=== PATIENT | female | born 1945 | race Caucasian/White ===

== ENCOUNTER → 2023-02-22 15:36 | Outpatient (REF) | payer OTHER, SELFPAY | LOC: DHCBC MAIN 15:36 | PROVIDERS: ATTENDING PHYSICIAN Internal Medicine; FAMILY PHYSICIAN Family Medicine | DX: I31.39 Other pericardial effusion (noninflammatory) (principal) | CPT/HCPCS: 93308 ==

== ENCOUNTER → 2023-04-28 14:29 | Outpatient (REF) | payer OTHER, SELFPAY | LOC: RAD 14:29 | PROVIDERS: ATTENDING PHYSICIAN Thoracic Surgery (Cardiothoracic Vascular Surgery); FAMILY PHYSICIAN Family Medicine | DX: J90 Pleural effusion, not elsewhere classified (principal) | CPT/HCPCS: 71046 ==

== ENCOUNTER 2023-06-25 08:16 | Outpatient (RCR) | payer OTHER, SELFPAY ==
[2023-06-01 11:33] LABS: Glucose - Point of Care 96 mg/dl (70-99)
[2023-06-01 12:51] LABS: Glucose - Point of Care 87 mg/dl (70-99)
[2023-06-04 08:20] LABS: Glucose - Point of Care 146 mg/dl (70-99)
[2023-06-04 09:12] LABS: Glucose - Point of Care 86 mg/dl (70-99)
[2023-06-07 08:15] LABS: Glucose - Point of Care 105 mg/dl (70-99)
[2023-06-07 08:59] LABS: Glucose - Point of Care 97 mg/dl (70-99)
[2023-06-11 08:10] LABS: Glucose - Point of Care 143 mg/dl (70-99)
[2023-06-11 08:59] LABS: Glucose - Point of Care 99 mg/dl (70-99)
[2023-06-16 08:13] LABS: Glucose - Point of Care 111 mg/dl (70-99)
[2023-06-18 08:08] LABS: Glucose - Point of Care 103 mg/dl (70-99)
[2023-06-18 08:56] LABS: Glucose - Point of Care 102 mg/dl (70-99)
[2023-06-21 08:12] LABS: Glucose - Point of Care 119 mg/dl (70-99)
[2023-06-21 08:59] LABS: Glucose - Point of Care 88 mg/dl (70-99)
== END 2023-06-25 23:59 | disposition home or self-care (01) ==
LOC: CRHB 08:16
PROVIDERS: ATTENDING PHYSICIAN Internal Medicine
DX: Z95.1 Presence of aortocoronary bypass graft (principal)
CPT/HCPCS: 82962; G0422; G0423

== ENCOUNTER → 2023-07-16 15:07 | Outpatient (REF) | payer OTHER, SELFPAY | LOC: DHCBC MAIN 15:07 | PROVIDERS: ATTENDING PHYSICIAN Nurse Practitioner; FAMILY PHYSICIAN Family Medicine | DX: I48.0 Paroxysmal atrial fibrillation (principal); I25.10 Atherosclerotic heart disease of native coronary artery without angina pectoris; Z95.2 Presence of prosthetic heart valve | CPT/HCPCS: 93306 ==

== ENCOUNTER 2023-07-26 08:24 | Outpatient (RCR) | payer OTHER, SELFPAY | END 2023-07-26 23:59 | disposition home or self-care (01) | LOC: CRHB 08:24 | PROVIDERS: ATTENDING PHYSICIAN Internal Medicine; FAMILY PHYSICIAN Family Medicine | DX: Z95.4 Presence of other heart-valve replacement (principal); Z95.1 Presence of aortocoronary bypass graft | CPT/HCPCS: G0422; G0423 ==

== ENCOUNTER → 2023-08-05 09:18 | Outpatient (REF) | payer OTHER, SELFPAY | LOC: HWRAD 09:18 | PROVIDERS: ATTENDING PHYSICIAN Internal Medicine Critical Care Medicine; FAMILY PHYSICIAN Family Medicine | DX: F17.210 Nicotine dependence, cigarettes, uncomplicated (principal) | CPT/HCPCS: 71271 ==

== ENCOUNTER 2023-08-18 10:06 | Outpatient (RCR) | payer OTHER, SELFPAY | END 2023-08-18 23:59 | disposition home or self-care (01) | LOC: CRHB 10:06 | PROVIDERS: ATTENDING PHYSICIAN Internal Medicine; FAMILY PHYSICIAN Family Medicine | DX: Z95.2 Presence of prosthetic heart valve (principal); Z95.1 Presence of aortocoronary bypass graft | CPT/HCPCS: G0422; G0423 ==

== ENCOUNTER 2023-08-19 05:24 | Inpatient (IN) | payer OTHER, SELFPAY ==
[2023-08-19] VITALS (12 sets, daily range): BP systolic 122–185; BP diastolic 72–116; BMI 20.9; BMI 19.2
--- NOTE | 2023-08-19 01:17 | ED.GENMED ---
History of Present Illness
<CHELI Cedeno - Last Filed: 08/19/23 04:09>
General
Chief Complaint: Nose Bleed
Source: patient
Exam Limitations: none
Time Seen by Provider: 08/19/23 00:41
History of Present Illness
History of Present Illness:
This is a 78 YO F with a PMH of valve replacement, COPD, and allergies that presents here today for a constant nose bleed x 2 hours. Pt reports this started at 11 PM and woke her from her sleep. She is currently on aspirin and Eliquis for A FIB. She
reports her left ear was throbbing last week, but states this is no longer bothering her. She states her car is full of pollen, which has caused some nasal congestion. Denies recent illness. Denies N,V, D, SOB, and chest pain. Denies lightheadedness
and dizziness. Denies dysphagia. Recently started Trelegy for COPD. She states this has never happened before.
Past History
<CHELI Cedeno - Last Filed: 08/19/23 04:09>
Past History
ED Past Medical History: COPD, HTN, Hypercholesterolemia, NIDDM and Valvular disease (Aortic stenosis)
ED Past Surgical History: Other (NA)
Social History
Tobacco: Smoker
Alcohol: Daily
Personal: Single
Living: with family
Employment: Retired
Review of Systems
<CHELI Cedeno - Last Filed: 08/19/23 04:09>
Review of Systems
Constitutional: Reports no symptoms
EENT: Reports other (Nose bleed x 2.5 hours ago)
Respiratory: Reports no symptoms
Cardiac: Reports no symptoms
ABD/GI: Reports no symptoms
: Reports no symptoms
Musculoskeletal: Reports no symptoms
Skin: Reports no symptoms
Neurological: Reports no symptoms
Phy Exam
<CHELI Cedeno - Last Filed: 08/19/23 04:09>
Physical Exam
Physical Exam:
Constant nose bleed since 11 p.m.
General Physical Exam
General Presentation: well appearing
General age: appears stated age
General Habitus: normal
General Mental: alert
ENT Exam
Additional ENT: Some blood in back of throat
Pulmonary Exam
Pulmonary Exam: lungs clear
Course
<CHELI Cedeno - Last Filed: 08/19/23 04:09>
Orders/Labs/Results
Orders:
Orders
08/19/23 04:06
Basic Metabolic Panel Urgent
Complete Blood Count/With Diff Urgent
Protime/PTT Urgent
Vital Signs
Initial and Last Documented VS:
Initial Vital Signs
Temp Pulse Resp BP Pulse Ox
97.5 F 61 18 169/94 95
08/19/23 00:13 08/19/23 00:13 08/19/23 00:13 08/19/23 00:13 08/19/23 00:13
Last Documented Vital Signs
Temp Pulse Resp BP Pulse Ox
97.5 F 60 18 140/72 97
08/19/23 00:13 08/19/23 04:04 08/19/23 00:13 08/19/23 04:04 08/19/23 04:04
<Amanda Martell DO - Last Filed: 08/19/23 04:13>
Orders/Labs/Results
Orders:
Orders
08/19/23 04:06
Basic Metabolic Panel Urgent
Complete Blood Count/With Diff Urgent
Protime/PTT Urgent
Vital Signs
Initial and Last Documented VS:
Initial Vital Signs
Temp Pulse Resp BP Pulse Ox
97.5 F 61 18 169/94 95
08/19/23 00:13 08/19/23 00:13 08/19/23 00:13 08/19/23 00:13 08/19/23 00:13
Last Documented Vital Signs
Temp Pulse Resp BP Pulse Ox
97.5 F 60 18 140/72 97
08/19/23 00:13 08/19/23 04:04 08/19/23 00:13 08/19/23 04:04 08/19/23 04:04
Procedures
<Amanda Martell DO - Last Filed: 08/19/23 04:13>
Nosebleed
Drug treatment: Lidocaine and Epinephrine
Treatment: local pressure applied, Silver nitrate cautery, Epistat nasal catheter and Merocel packing
Post treatment bleeding: still some oozing (silver nitrate to ant septum and anterior aspect of inferior turbinate.) and continue to observe
<CHELI Cedeno - Last Filed: 08/19/23 04:09>
MDM/Problems Addressed
Differential Diagnosis Includes:
Anterior nose bleed vs. posterior nose bleed
MDM/Problems Addressed:
Nose bleed x 2 hours
Chronic conditions affecting care: COPD
<CHELI Cedeno - Last Filed: 08/19/23 04:09>
*Critical Care Note
Total Time (30-74mins, 75-104mins- exclusive of procedures): Not Applicable
<Amanda Martell DO - Last Filed: 08/19/23 04:13>
*Pulse Oximetry
Patient hypoxic: no
ED Attending Note
<CHELI Cedeno - Last Filed: 08/19/23 04:09>
-
Portions of this chart may have been created with voice recognition software.� Occasional wrong word or��sound alike� substitutions may have occurred due to the inherent limitations of voice recognition software.
<Amanda Martell DO - Last Filed: 08/19/23 04:13>
ED Attending Note
Patient seen and examined by attending physician: Yes
I performed the substantive portion of visit, reviewed & personally made and approve the management plan that is documented in note by myself or MOHSEN.: Yes
I performed a history and physical exam of patient and discussed management with resident, I reviewed resident's note and agree with documented findings and plan of care.: Yes
ED Attending Note:
This is a 78-year-old woman with history of PAF, chronically maintained on Eliquis as well as low-dose aspirin. She has history of CAD, aortic stenosis status post CABG x 1, AVR March 2023.
She complains of spontaneous left nostril epistaxis that woke her from sleep around 11 PM. She has had issues with seasonal allergies recently with mild intermittent nasal congestion, rare sneezing but has not had a headache, no sore throat, no
fever nor sinus pain. No prior history of nosebleeds. She has been trying to hold pressure but continues with intermittent oozing of blood from the left nostril. She denies dizziness nor lightheadedness, no nausea nor vomiting.
GENERAL: 78-year-old woman appears somewhat younger than stated age, bright and alert, pleasant, appears in no acute distress. External nasal clip in place. No active epistaxis noted.
EYE: pupils equal and reactive. anicteric
NECK: Supple, nontender, no meningismus, no significant adenopathy.
ENT: posterior pharynx has scant blood streaking but no evidence of active bleeding posteriorly, oral mucosa is moist. TM clear b/l, there is scant blood within the left nostril with mild erythema of anterior septum as well as 1 pinpoint area of
erythema anterior aspect of the inferior turbinate. There is no evidence of active bleeding.
CARDIAC: Regular rate and rhythm. 2/6 holosystolic murmur.
LUNGS: Clear breath sounds bilaterally, no acute respiratory distress, no wheezes/rales/rhonchi
ABDOMEN: Soft, nondistended, without focal tenderness
NEUROLOGICAL: Alert and oriented x3, no focal neuro deficits. Gait is steady.
SKIN: Warm and dry, normal color, skin intact. No rash. No petechiae nor ecchymosis.
MUSCULOSKELETAL: No C/C/E. peripheral pulses are full and equal b/l. No palpable tenderness.
PSYCH: Normal and appropriate interaction.
Patient presents with acute left nostril epistaxis.
Chronically maintained on Eliquis, low-dose aspirin.
Hemodynamically stable.
No evidence of active epistaxis but she is noted to have area of erythema anterior septum as well as anterior aspect of the inferior turbinate both of which have been cauterized.
After initial cautery patient has had return of very mild bleeding from left nostril which appears to be very inferior aspect of the inferior turbinate which has been recauterized.
Will continue to observe.
08/19/2023 0223 AM
Patient has again had mild slow bleeding from left nostril. Reexamination reveals initial cautery sites remain dry. Bleeding appears to be more posteriorly but no definitive site identified thus 8 cm Merocel packing placed in left nostril.
Patient tolerated procedure well. Epistaxis appears to have subsided but will continue to observe.
08/19/2023 0335 AM
Patient has had no recurrent bleeding. Has ambulated to and from the bathroom with steady, unaided gait.
She remains hemodynamically stable.
Will discharge home with Merocel packing in place.
Will place on a short course of doxycycline for sinusitis prevention.
Recommend she hold her Eliquis over the next 2 days, can resume thereafter.
Will refer to ENT for follow-up, further evaluation and packing removal.
08/19/2023 0407 AM
While getting ready to discharge patient, she had recurrent bleeding from left nostril, Merocel packing is now soaked with some oozing of blood from her left nostril.
Merosel packing removed and replaced with Nasostat balloon packing.
Due to recurrent bleeding requiring multiple various interventions will plan to admit to hospitalist service for continued close observation with plan to consult ENT.
Will hold Eliquis and aspirin.
Discharge Plan
Departure
Patient Disposition: Admit
Date of Disposition: 08/19/23
Time of Disposition: 04:12
Admit to: Med/Surg
Admit to doctor: Sivakumar
Presentation/result/management discussed w/ accepting MD/DO: Hospitalist
Patient with high blood pressure during this ER visit?: No
Condition: Good
Discharge Problem:
acute epistaxis, recurrent epistaxis left nostril
Instructions: Nosebleeds (DC)
Prescriptions:
New
doxycycline monohydrate 100 mg capsule
100 mg PO BID Qty: 10 1RF
No Action
metformin 500 mg Tablet
500 mg PO DAILY
atorvastatin 20 mg Tablet
20 mg PO DAILY
albuterol sulfate [ProAir HFA] 90 mcg/actuation Hfa Aerosol Inhaler
1 puff INHALATION PRN PRN (Reason: copd)
nicotine 7 mg/24 hr Patch 24 Hour
1 patch TRANSDERMAL Q24H PRN (Reason: quit smoking)
amiodarone [Pacerone] 100 mg tablet
100 mg PO DAILY
Eliquis 5 mg tablet
5 mg PO BID
aspirin [Children's Aspirin] 81 mg Tablet,Chewable
81 mg PO DAILY Qty: 0 0RF
metoprolol succinate 25 mg tablet extended release 24 hr
25 mg PO DAILY Qty: 30 2RF
furosemide 20 mg tablet
20 mg PO DAILY 7 Days Qty: 0 0RF
Trelegy Ellipta 100-62.5-25 mcg Blister With Device
1 inh INHALATION DAILY
Referrals:
Zeb Godfrey MD [Family Provider] -
Guru Abreu MD [Active] - Next open appointment
Activity Restrictions/Additional Instructions:
Hold your Eliquis over the next 2 days, and Wednesday, you can resume on Wednesday.
Try to avoid blowing, sniffing and aggressively wiping her nose.
You have Merocel packing in the left nostril which should remain in place for at least 3 days. You should follow-up with ENT specialist for further evaluation and packing removal.
Interventions
Interventions:
*Risk Screen - Suicide Last Done: 08/19/23 00:13
*General Assessment Last Done: 08/19/23 00:13
*Neglect/Abuse Screening Last Done: 08/19/23 00:13
ED- Fall Risk Assessment Last Done: 08/19/23 00:13
*ED COVID-19 Vaccine History Last Done: 08/19/23 00:13
ED-EENT Assessment Last Done: 08/19/23 00:57
Discharge Date and Time
Print Language: UGANDAN
[2023-08-19 04:35] LABS: % Basophils 1.1 % (0-2); % Eosinophils 3.2 % (0-6); % Immature Granulocytes 0.3 % (0-0.5); % Lymphocytes 46.9 % (20.5-51.1); % Monocytes 10.3 % (1.7-9.3); % Neutrophils 38.2 % (42.2-75.2); Absolute Basophils 0.1 10^3/uL (0-0.2); Absolute Eosinophils 0.2 10^3/uL (0-0.7); Absolute Monocytes 0.7 10^3/uL (0.1-0.6); Absolute Neutrophils 2.4 10^3/uL (1.4-6.5); Hematocrit 43.1 % (37.0-47.0); Hemoglobin 14.4 g/dL (12.0-16.0); Mean Corp Hgb Conc. 33.4 g/dL (33.0-37.0); Mean Corpuscular Hgb 27.6 pg (27.0-31.0); Mean Corpuscular Volume 82.7 fL (81.0-99.0); Mean Platelet Volume 9.9 fL (7.4-10.4); Nucleated Red Blood Cells % 0 %; Platelet Count 144 10^3/uL (130-400); Red Blood Cell Count 5.21 10^6/uL (4.20-5.40); Red Cell Dist. Width 14.2 % (11.5-14.5); White Blood Cell Count 6.3 10^3/uL (4.8-10.8)
--- NOTE | 2023-08-19 04:35 | HPS.HSE ---
Family Physician
-
Family Physician: Zeb Godfrey
Chief Complaint
-
L nostril bleed
History of Present Illness
HPI: 78 yo F with PMH of COPD, HTN, HLD, SSS s/p PPM, NIDDM, PAF on Eliquis, CAD s/p bypass surgery March 2023, severe s/p aortic valve replacement Mar 2023 ; p/w L nostril bleed that started at 11 PM and woke the patient up from sleep.
Nosebleed appeared to be spontaneous. She is currently on aspirin and Eliquis for A FIB.
Patient also reported left ear tinnitus ongoing for past week, appeared to have resolved.
She denies to fever/chills, nausea/vomiting, chest pain/shortness of breath, abdominal pain, change in bowel movement or urination.
Medical History
Past Medical History
Past Medical History: Reports HTN, Hypercholesterolemia, NIDDM and Other (aortic stenosis)
Past Surgical History: Reports Tonsilectomy and Other
Additional Past Surgical History:
Aortic valve replacement March 2023
Cardiac bypass surgery March 2023
Social History
Tobacco: Former Smoker (former smoker 02/01/2023-prior 3 pack a day x20 years, 1 pack a day x40 years)
Alcohol: Occasional (beer)
Personal: Single
Living: With Family
Employment: Retired
Family History
Family History: Other (Mother [place] age 90, father [place] age 83)
Allergies / Home Medications
Allergies reflects when Allergies were last updated in [facility].
Home Medications with original date entered in [facility]
Allergy/Medication List:
Allergies
Allergy/AdvReac Type Severity Reaction Status Date / Time
Penicillins Allergy Rash Verified 08/19/23 00:11
pramoxine Allergy Rash Verified 08/19/23 00:11
Sulfa (Sulfonamide Allergy Rash Verified 08/19/23 00:11
Antibiotics)
sulfamethoxazole Allergy Rash Verified 08/19/23 00:11
[From Bactrim]
trimethoprim [From Bactrim] Allergy Rash Verified 08/19/23 00:11
Home Medications
atorvastatin 20 mg tablet 20 mg PO DAILY High Cholesterol 02/04/23
metformin 500 mg tablet 500 mg PO DAILY Diabetes 02/04/23
albuterol sulfate 90 mcg/actuation aerosol inhaler (ProAir HFA) 1 puff inhalation PRN PRN copd 04/07/23
nicotine 7 mg/24 hr daily transdermal patch 1 patch transdermal Q24H PRN quit smoking 04/07/23
amiodarone 100 mg tablet (Pacerone) 100 mg PO DAILY Arrhythmia 04/21/23
apixaban 5 mg tablet (Eliquis) 5 mg PO BID Blood Clot Prevention/Tx 04/21/23
aspirin 81 mg chewable tablet (Children's Aspirin) 81 mg PO DAILY Blood clot prevention/tx #0 tabs 04/24/23
furosemide 20 mg tablet 20 mg PO DAILY Fluid Retention/Swelling 7 days #0 tabs 04/24/23
metoprolol succinate 25 mg tablet,extended release 24 hr 25 mg PO DAILY #30 tabs 04/24/23
doxycycline monohydrate 100 mg capsule 100 mg PO BID #10 caps 08/19/23
fluticasone fur. 100 mcg-umeclid 62.5 mcg-vilant 25 mcg inhalat.powder (Trelegy Ellipta) 1 inh inhalation DAILY 08/19/23
Review of Systems
-
EENT: Reports See HPI and Other (Left nostril bleed)
Physical Exam
Vital Signs
Vital Signs
Temp Pulse Resp BP Pulse Ox
36.4 C 60 18 140/72 97
08/19/23 00:13 08/19/23 04:04 08/19/23 00:13 08/19/23 04:04 08/19/23 04:04
Physical Exam
General: Well Developed, Well Nourished, No Apparent Distress, Comfortable and Conversant
HEENT: NormoCephalic, Moist mucous membranes, Atraumatic and Other (Left nostril is packed)
Respiratory: Clear and Non Labored Respirations; No Accessory Resp Muscle Use
Cardiac: S1/S2 and Regular Rhythm; No Murmur or Rub
GI: Soft, Non Tender, Non Distended and Normal Bowel Sounds; No Organomegaly
Rectal: Deferred by Provider
Musculoskeletal: No Clubbing, No Cyanosis and No Edema
Skin: No Rash
Neuro: Awake, Alert and Nonfocal/grossly intact
Psych: Calm and Intact Judgment/Insight
Laboratory Results
-
08/19/23 04:26
Data Reviewed
-
Lab Data: Labs Reviewed by me
Impression/Plan
-
HPI: 78 yo F with PMH of COPD, HTN, HLD, SSS s/p PPM, NIDDM, PAF on Eliquis, CAD s/p bypass surgery March 2023, severe s/p aortic valve replacement Mar 2023 ; p/w L nostril bleed that started at 11 PM and woke the patient up from sleep.
Nosebleed appeared to be spontaneous. She is currently on aspirin and Eliquis for A FIB.
Patient also reported left ear tinnitus ongoing for past week, appeared to have resolved.
She denies to fever/chills, nausea/vomiting, chest pain/shortness of breath, abdominal pain, change in bowel movement or urination.
A/P:
# Left nostril epistaxis, related to Eliquis use
Hemoglobin and platelet within normal limits on admission, 14.4 and 144 respectively
Status post cautery, merocel packing and nasostat in ED, bleeding appeared to have stopped
Monitor for recurrent bleeding
ENT consult
Hold prior to admission ASA and Eliquis temporarily
# Severe s/p AVR
# CAD s/p SVG to RCA.
Resume baby aspirin when nose bleed controlled
# PAF, Chronic and stable.
Cont CHIP WASHER amiodarone.
resume CHIP WASHER Eliquis when nose bleed under control
# COPD/Tobacco Abuse History, stable.
# SSS s/p PPM, stable.
# HLD
cont CHIP WASHER Lipitor
DVT ppx: SCD
FC
[2023-08-19] MEDS: MORPHINE SULFATE 2 MG IV (04:41)
[2023-08-19 04:42] LABS: INR 1.22; PT 15.5 Sec (11.4-14.6)
[2023-08-19 04:43] LABS: APTT 34.7 Sec (23.4-35.0)
[2023-08-19 04:50] LABS: Blood Urea Nitrogen 22 mg/dl (7-17); Calcium 9.8 mg/dl (8.4-10.2); Carbon Dioxide 24 mmol/L (22-30); Chloride 106 mmol/L (98-107); Estimated Creatinine Clearance 62 ml/min; Glucose 125 mg/dl (70-99); Potassium 4.3 mmol/L (3.5-5.1); Sodium 137 mmol/L (135-145); eGFR > 60.00
[2023-08-19 06:21] LABS: Magnesium 1.9 mg/dl (1.6-2.3)
[2023-08-19] MEDS: SYMBICORT 80/4.5 MCG INHALER 2 PUFF INH ×2 (08:02→20:25)
[2023-08-19] MEDS: SPIRIVA RESPIMAT 2.5 MCG 2 PUFF INH (08:03)
[2023-08-19] MEDS: LIPITOR 20 MG PO (08:12)
[2023-08-19] MEDS: TOPROL XL 25 MG PO (08:13)
[2023-08-19] MEDS: LASIX 20 MG PO (08:13)
[2023-08-19] MEDS: GLUCOPHAGE 500 MG PO (08:13)
[2023-08-19 08:19] LABS: Glucose - Point of Care 148 mg/dl (70-99)
[2023-08-19] MEDS: NOVOLOG FLEXPEN-LOW RESISTANCE SC ×2 (08:21→16:13)
[2023-08-19] MEDS: PACERONE 100 MG PO (09:29)
--- NOTE | 2023-08-19 10:00 | PTCARENOTE ---
pt aaox3. states no pain or sob. left nares packing with oozing noted. breath sounds clear. paced rhythm noted on monitor.
--- NOTE | 2023-08-19 10:22 | W.PN.HOSP.TC ---
Today's Communication/Plan
-
Continue balloon packing.
Hold Eliquis
ENT consultation
Prophylactic antibiotics
Assessment / Plan
Assessment / Plan
HPI: 78 yo F with PMH of COPD, HTN, HLD, SSS s/p PPM, NIDDM, PAF on Eliquis, CAD s/p bypass surgery March 2023, severe s/p aortic valve replacement Mar 2023 ; p/w L nostril bleed that started at 11 PM and woke the patient up from sleep.
Nosebleed appeared to be spontaneous. She is currently on aspirin and Eliquis for A FIB.
Patient also reported left ear tinnitus ongoing for past week, appeared to have resolved.
She denies to fever/chills, nausea/vomiting, chest pain/shortness of breath, abdominal pain, change in bowel movement or urination.
Impression:
Left nostril epistaxis
Conditions prior to admission:
Severe aortic stenosis status post AVR
CAD with SVG to RCA.
Paroxysmal atrial fibrillation
Anticoagulation with Eliquis
COPD
Active tobacco smoker.
Sick sinus syndrome status post PPM
Dyslipidemia
Plan:
Left nostril epistaxis, spontaneous and secondary to anticoagulation with Eliquis
Status post: Silver nitrate cautery, Epistat nasal catheter and Merocel packing in ED.
ENT consult pending.
Hold Eliquis and aspirin
Initiate antibiotic prophylaxis with Keflex (penicillin allergy)
Monitor hemoglobin.
# Severe s/p AVR
# CAD s/p SVG to RCA.
Resume baby aspirin when nose bleed controlled
# PAF, Chronic and stable.
Cont SENIOR DESIGN ENGINEERING SPECIALIST amiodarone.
resume SENIOR DESIGN ENGINEERING SPECIALIST Eliquis when nose bleed under control
# COPD/Tobacco Abuse History, stable.
# SSS s/p PPM, stable.
# HLD
cont SENIOR DESIGN ENGINEERING SPECIALIST Lipitor
DVT ppx: SCD
Anticipated Discharge: 24 - 48 hours
Subjective/Interval History
-
Date of Service: August 19, 2023
Objective Data
-
Labs:
Laboratory Results
08/19/23 08/19/23
04:26 06:00
WBC 6.3 Cancelled
Hgb 14.4 Cancelled
Hct 43.1 Cancelled
Plt Count 144 Cancelled
PT 15.5 H
INR 1.22
APTT 34.7
Sodium 137 Cancelled
Potassium 4.3 Cancelled
Chloride 106 Cancelled
Carbon Dioxide 24 Cancelled
BUN 22 H Cancelled
Creatinine 0.7 Cancelled
Glucose 125 H Cancelled
Calcium 9.8 Cancelled
Vital Signs:
Vital Signs
Temp Pulse Resp BP Pulse Ox
97.7 F 60 20 175/92 95
08/19/23 08:00 08/19/23 09:45 08/19/23 09:45 08/19/23 09:29 08/19/23 08:30
Physical Exam
-
General: Well Developed and No Apparent Distress
HEENT: Normocephalic, Atraumatic and Moist Mucous Membranes
Respiratory: Clear to Auscultation
Cardiac: Regular Rhythm and S1/S2; Negative Murmur, Rub or Gallop
GI: Soft, Nontender, Nondistended and Normal Bowel Sounds; Negative Organomegaly
Rectal: Deferred by Provider
Musculoskeletal: No Clubbing, No Cyanosis and No Edema
Skin: Negative Rash
Neuro: Nonfocal/Grossly Intact
[2023-08-19] MEDS: TYLENOL 650 MG PO (11:54)
[2023-08-19] MEDS: KEFLEX 500 MG PO ×2 (12:49→17:38)
--- NOTE | 2023-08-19 12:49 | CM ---
CM met with patient in room. Patient confirmed demographics. Patient lives independently with daughter. Patient is no current with any home care at this time. Patient does not have a history of SNF or DME. Patient is active with her PCP. Patient
uses [facility] for medication services.
PLAN: No needs noted
[2023-08-19 13:02] LABS: Glucose - Point of Care 208 mg/dl (70-99)
[2023-08-19] MEDS: NOVOLOG FLEXPEN-LOW RESISTANCE 208 UNITS SC (13:48)
--- NOTE | 2023-08-19 14:48 | PTCARENOTE ---
pt transferred to [facility]. will all belongings.
--- NOTE | 2023-08-19 15:47 | CON.MD ---
Consultation - Medical
-
Patient seen and evaluated at the bedside.
Full consult dictated.
A/P-��78-year-old female with left-sided epistaxis
-Patient with spontaneous nosebleed last evening.
-Patient with history of aspirin and Eliquis treatment.
-Aspirin and Eliquis currently on hold.
-Packing in place on left side of nose.
-Patient stable currently.
-Continue to hold anticoagulation for 24 hours longer.
-Will remove packing at bedside tomorrow morning if patient is stable.
-Hopefully patient can go home once the packing has been removed.
-Would consider resuming aspirin over the weekend.
-If patient is stable over the weekend she can then resume her Eliquis.
[2023-08-19 16:05] LABS: Glucose - Point of Care 112 mg/dl (70-99)
--- NOTE | 2023-08-19 21:00 | PTCARENOTE ---
Patient vomited non-bloody food contents into bedside basin, admits to feeling nauseous. Refused need for antiemetics and non-pharmacologic interventions such as trevor jona. Ice chips provided for comfort. Patient refused dose of PO Keflex secondary
to nausea and vomiting, provided education and support. Continue with care.
[2023-08-19] MEDS: KEFLEX PO (21:44)
[2023-08-19 22:06] LABS: Glucose - Point of Care 148 mg/dl (70-99)
[2023-08-20 03:00] VITALS: BP 155/80
[2023-08-20 06:58] VITALS: BMI 18.7
[2023-08-20 07:49] VITALS: BP 167/84
[2023-08-20] MEDS: LASIX 20 MG PO (08:21)
[2023-08-20] MEDS: TOPROL XL 25 MG PO (08:21)
[2023-08-20] MEDS: GLUCOPHAGE 500 MG PO (08:21)
[2023-08-20] MEDS: KEFLEX 500 MG PO ×2 (08:21→12:16)
[2023-08-20] MEDS: LIPITOR 20 MG PO (08:21)
[2023-08-20] MEDS: PACERONE 100 MG PO (08:21)
[2023-08-20 08:26] LABS: Glucose - Point of Care 216 mg/dl (70-99)
[2023-08-20] MEDS: NOVOLOG FLEXPEN-LOW RESISTANCE 2 UNITS SC (08:26)
--- NOTE | 2023-08-20 08:36 | W.PN.ENT ---
Today's Communication
-
Packing removed from left side of nose today.
Surgifoam pack placed with oxymetazoline.
The pack will dissolve on its own.
Recommend restarting aspirin tomorrow if patient is stable.
If patient remains stable can likely restart Eliquis on Wednesday.
It may be prudent to start Eliquis at a lower dose and increase if patient has no bleeding.
Patient can likely be discharged from an ENT perspective.
Recommend nasal saline use.
Would cover patient with 3 to 5 days of oral antibiotics at home.
Impression / Plan
-
78-year-old female with epistaxis due to anticoagulation.
-Packing removed from left side at bedside today.
-Surgifoam pack with oxymetazoline placed on left side.
-Patient can hold pressure or use oxymetazoline nasal spray as needed for oozing.
-Recommend restarting aspirin tomorrow if patient is stable.
-If patient remains stable can likely restart Eliquis on Wednesday.
-It may be prudent to start Eliquis at a lower dose and increase if patient has no bleeding.
-Patient can likely be discharged from an ENT perspective.
-Recommend nasal saline use.
-Would cover patient with 3 to 5 days of oral antibiotics at home.
-Patient can follow-up as an outpatient as needed.
-Please contact me if there are any problems.
Subjective Data
-
Patient with packing in place on left side.
Did have some oozing over night, mild.
Vomited some blood up as well.
This morning seems to be stable.
Does have a headache on the left side.
Objective Data
-
Vital Signs
Temp Pulse Resp BP Pulse Ox
98 F 68 16 167/84 96
08/20/23 07:49 08/20/23 08:21 08/20/23 07:49 08/20/23 08:21 08/20/23 07:49
Intake & Output
08/19/23 08/20/23 08/21/23
06:59 06:59 06:59
Intake:
Oral fluids 720 / 720
Other:
Number of approximated MODERATE 1
amounts of urine
Lab Results
08/19/23 06:00
08/19/23 06:00
PT 15.5 Sec (11.4-14.6) H 08/19/23 04:26
INR 1.22 08/19/23 04:26
APTT 34.7 Sec (23.4-35.0) 08/19/23 04:26
Calcium Cancelled 08/19/23 06:00
Magnesium Cancelled 08/19/23 06:00
Physical Exam
-
Packing removed from left side of nose.
Clots removed.
Mucosal noted to be macerated.
Minimal oozing anteriorly.
Surgicel sponge soaked in oxymetazoline placed on left side of nose and pressure held.
No significant bleeding encountered.
Oral cavity/oropharynx unremarkable without any blood noted on posterior pharyngeal wall.
--- NOTE | 2023-08-20 08:42 | PN.CDI ---
CDI
- -
CDI:
Physician Documentation Request
Admit Date: 08/19/23 05:24
Dear Doctor Ariel,
Patient admitted with left nostril epistaxis.
Please review the following and provide your response in the progress notes.
Clinical Indicators:
Height: 5' 7'
Weight: 119 lb 6 oz
BMI: 18.7
Please provide an associated diagnosis related to the abnormal BMI, such as:
Underweight
Cachectic
Anorexia
BMI is not significant
Other
BMI < or = to 19
Underweight
Weight Loss
Cachectic
Anorexia
Use of terms such as suspected, likely, concern for, or probable (associated with a specific diagnosis that is being evaluated, monitored, or treated as if it exists) are acceptable and can be coded in the inpatient setting, when documented at the
time of discharge.
Thank you,
Cristal ÁLVAREZ,RN,CCDS
CDI Specialist
Available via [place] text
Please use your independent medical judgment in providing your response.
[2023-08-20] MEDS: SPIRIVA RESPIMAT 2.5 MCG 2 PUFF INH (08:45)
[2023-08-20] MEDS: SYMBICORT 80/4.5 MCG INHALER 2 PUFF INH (08:46)
[2023-08-20 10:27] LABS: Hemoglobin 16.3 g/dL (12.0-16.0)
[2023-08-20 11:27] VITALS: BP 162/81
--- NOTE | 2023-08-20 12:01 | W.DS.TRANS ---
DC Summary - [employer]
-
Discharge Instructions:
Sleep Apnea Risk Intermediate
Discharge Diagnosis/Procedures Epistaxis
Diet Regular
Instructions:
Stand-Alone Forms:
Changes to Home Medications: No
Discharge Medications:
DC Medications w/original date entered in [employer]
atorvastatin 20 mg tablet 20 mg PO DAILY High Cholesterol 02/04/23
metformin 500 mg tablet 500 mg PO DAILY Diabetes 02/04/23
albuterol sulfate 90 mcg/actuation aerosol inhaler (ProAir HFA) 2 puff inhalation R [id number] PRN copd 04/07/23
nicotine 7 mg/24 hr daily transdermal patch 1 patch transdermal Q24H PRN quit smoking 04/07/23
amiodarone 100 mg tablet (Pacerone) 100 mg PO DAILY Arrhythmia 04/21/23
apixaban 5 mg tablet (Eliquis) 5 mg PO BID Blood Clot Prevention/Tx 04/21/23
aspirin 81 mg chewable tablet (Children's Aspirin) 81 mg PO DAILY Blood clot prevention/tx #0 tabs 04/24/23
metoprolol succinate 25 mg tablet,extended release 24 hr 25 mg PO DAILY #30 tabs 04/24/23
fluticasone fur. 200 mcg-umeclid 62.5 mcg-vilant 25 mcg inhalat.powder (Trelegy Ellipta) 1 inh inhalation R DAILY Lung/Breathing Issues 08/19/23
cephalexin 500 mg capsule 500 mg PO QID #20 caps 08/20/23
furosemide 20 mg tablet 20 mg PO DAILY #30 tabs 08/20/23
Home Medication Changes
Pending Results: No
[2023-08-20 12:19] LABS: Glucose - Point of Care 72 mg/dl (70-99)
[2023-08-20] MEDS: NOVOLOG FLEXPEN-LOW RESISTANCE SC (12:39)
== END 2023-08-20 12:39 | disposition home or self-care (01) | DRG 813 ==
LOC: 3 WEST ACU 05:24
PROVIDERS: ADMITTING PHYSICIAN Internal Medicine; ATTENDING PHYSICIAN Internal Medicine; CONSULT PHYSICIAN Otolaryngology; EMERGENCY PHYSICIAN Emergency Medicine; FAMILY PHYSICIAN Family Medicine
PROC: 093K7ZZ Control Bleeding in Nasal Mucosa and Soft Tissue, Via Natural or Artificial Opening (ICD-10-PCS; 2023-08-19)
DX: D68.32 Hemorrhagic disorder due to extrinsic circulating anticoagulants (principal); Z68.1 Body mass index [BMI] 19.9 or less, adult; R64 Cachexia; R04.0 Epistaxis; T45.515A Adverse effect of anticoagulants, initial encounter; I48.0 Paroxysmal atrial fibrillation; I25.10 Atherosclerotic heart disease of native coronary artery without angina pectoris; J44.9 Chronic obstructive pulmonary disease, unspecified; F17.210 Nicotine dependence, cigarettes, uncomplicated; I49.5 Sick sinus syndrome; E11.9 Type 2 diabetes mellitus without complications; I10 Essential (primary) hypertension; R63.6 Underweight; Z95.2 Presence of prosthetic heart valve; Z79.01 Long term (current) use of anticoagulants; Z79.82 Long term (current) use of aspirin; Z95.0 Presence of cardiac pacemaker; Z79.84 Long term (current) use of oral hypoglycemic drugs; E78.00 Pure hypercholesterolemia, unspecified; Z79.899 Other long term (current) drug therapy
CPT/HCPCS: 30901; 80048; 82962; 83036; 83735; 85018; 85025; 85610; 85730; 94640; 96374; 99285

== ENCOUNTER 2023-09-03 13:00 | Outpatient (RCR) | payer OTHER, SELFPAY | END 2023-09-03 23:59 | disposition home or self-care (01) | LOC: CRHB 13:00 | PROVIDERS: ATTENDING PHYSICIAN Internal Medicine | DX: I35.0 Nonrheumatic aortic (valve) stenosis (principal); I25.10 Atherosclerotic heart disease of native coronary artery without angina pectoris; Z95.4 Presence of other heart-valve replacement; Z95.1 Presence of aortocoronary bypass graft | CPT/HCPCS: G0422; G0423 ==

== ENCOUNTER → 2024-07-21 08:50 | Outpatient (REF) | payer OTHER, SELFPAY | LOC: HWRAD 08:50 | PROVIDERS: ATTENDING PHYSICIAN Internal Medicine Critical Care Medicine; FAMILY PHYSICIAN Family Medicine | DX: R91.1 Solitary pulmonary nodule (principal) | CPT/HCPCS: 71250 ==

== ENCOUNTER → 2025-03-26 12:58 | Outpatient (REF) | payer OTHER, SELFPAY | LOC: RCS 12:58 | PROVIDERS: ATTENDING PHYSICIAN Internal Medicine; FAMILY PHYSICIAN Family Medicine | DX: I25.810 Atherosclerosis of coronary artery bypass graft(s) without angina pectoris (principal); Z95.3 Presence of xenogenic heart valve; I48.0 Paroxysmal atrial fibrillation; Z95.0 Presence of cardiac pacemaker; I10 Essential (primary) hypertension | CPT/HCPCS: 93306 ==